=== PATIENT | male | born 1975 | race Caucasian/White ===

== ENCOUNTER 2016-10-12 18:19 | Emergency (ER) | payer OTHER | END 2016-10-12 20:05 | disposition home or self-care (01) | LOC: FER 18:19 | DX: S05.11XA Contusion of eyeball and orbital tissues, right eye, initial encounter (principal); I10 Essential (primary) hypertension; W20.8XXA Other cause of strike by thrown, projected or falling object, initial encounter | CPT/HCPCS: 70450; 70486 ==

== ENCOUNTER 2016-10-30 21:06 | Emergency (ER) | payer OTHER ==
[2016-10-30 21:52] LABS: HCT 34.3 % (42.0-52.0); MCH 19.7 pg (25.0-31.0); MCHC 29.2 g/dL (32.0-36.0); MCV 67.7 fL (78.0-100.0); PLT 262 K/uL (150-400); RBC 5.07 M/uL (4.70-6.00); WBC 5.7 K/uL (4.0-10.5)
[2016-10-30 22:12] LABS: CREATININE 0.8 mg/dL (0.7-1.2); POTASSIUM 4.1 mmol/L (3.5-5.1)
[2016-10-30 23:18] LABS: CLARITY CLEAR (CLEAR); COLOR COLORLESS (YELLOW); GLUCOSE (U) NORMAL (NORMAL); PROTEIN NEGATIVE (NEGATIVE); SPECIFIC GRAVITY <=1.005 (1.001-1.030)
[2016-10-30 23:19] LABS: BILIRUBIN NEGATIVE (NEGATIVE); BLOOD NEGATIVE Ery/uL (NEGATIVE); KETONE (U) NEGATIVE (NEGATIVE); LEUKOCYTES NEGATIVE Leu/uL (NEGATIVE); NITRITE NEGATIVE (NEGATIVE); UROBILINOGEN 0.2 mg/dL (0.2-1.0)
== END 2016-10-30 23:59 | disposition home or self-care (01) ==
LOC: FER 21:06
PROVIDERS: Emergency Medicine
DX: R55 Syncope and collapse (principal); D64.9 Anemia, unspecified; K92.1 Melena; R05 Cough; I10 Essential (primary) hypertension; K21.9 Gastro-esophageal reflux disease without esophagitis; Z91.041 Radiographic dye allergy status; Z83.3 Family history of diabetes mellitus; Z79.899 Other long term (current) drug therapy
CPT/HCPCS: 36415; 71010; 80048; 81003; 84484; 87804; 87899; 93005; 94640; 94760